=== PATIENT | female | born 2000 | race African-American/Black ===

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

== ENCOUNTER 2022-04-10 14:12 | Emergency (ER) | payer BC, OTHER ==
[~2022-04-10] VITALS: Ht 157.5 cm; Wt 115.7 kg
[~2022-04-10 14:12] MED LIST: ACETAMINOPHEN-1 EAC4 PO; DOXYCYCLINE HY100 MG PO; IBUPROFEN IB200 MG PO
== END 2022-04-10 15:23 | disposition home or self-care (01) ==
LOC: ER 14:32
DX: S39.012A Strain of muscle, fascia and tendon of lower back, initial encounter (principal); M25.551 Pain in right hip; X50.0XXA Overexertion from strenuous movement or load, initial encounter; Y92.89 Other specified places as the place of occurrence of the external cause
CPT/HCPCS: 99283